=== PATIENT | female | born 1955 | race Caucasian/White ===

== ENCOUNTER 2018-08-22 16:31 | Emergency (ER) | payer SELFPAY ==
[~2018-08-22] VITALS: Ht 157.5 cm; Wt 60.0 kg
[~2018-08-22 16:31] MED LIST: LISI1TAB11 PO; SULF1TAB49 PO
--- NOTE | 2018-08-22 17:02 | NUR ---
pt amb with steady gait to restroom
[2018-08-22] MEDS ORDERED: normal saline 1000ML IV soln IVB ONE (17:15)
[2018-08-22] MEDS ORDERED: labetalol 20mg/4ml (5mg/ml) syringe IV ONE (17:15)
--- NOTE | 2018-08-22 17:19 | NUR ---
Pt to CT.
[2018-08-22 17:54] LABS: CLARITY,URINE CLEAR (Clear); COLOR,URINE STRAW (Yellow); GLUCOSE, URINE NEGATIVE (Neg); KETONES,URINE NEGATIVE (Neg); LEUKOCYTE ESTERASE ,URINE NEGATIVE (Neg); NITRITES, URINE NEGATIVE (Neg); OCCULT BLOOD,URINE NEGATIVE (Neg); PROTEIN,URINE NEGATIVE (Neg); UROBILINOGEN,URINE 0.2 E.U/dL (0.2-1.0)
[2018-08-22 17:55] LABS: UA COLLECTION TYPE CLN CATCH MIDSTREAM
[2018-08-22] MEDS ORDERED: morphine 4 MG/ML inj SYRINge IV ONE (18:00)
--- NOTE | 2018-08-22 18:43 | NUR ---
Patient requesting to go home as her blood pressure has come down and she is feeling better. She requests ibuprofen for her headache. Spoke to Dr. Cramer and she states the patient may leave, but would have to sign AMA as we need to ensure her cardiac enzymes are normal and her kidney function is acceptable. Order for ibuprofen obtained. Will speak with the patient about staying for lab results.
[2018-08-22] MEDS ORDERED: ibuprofen tablet 400 MG TABLET PO ONE (18:45)
[2018-08-22 19:10] LABS: ALANINE AMINOTRANSFERASE 30 U/L (12-78); ALBUMIN 3.7 G/DL (3.4-5.0); ALKALINE PHOSPHATASE 96 IU/L (46-116); ANION GAP 15 (8-16); ASPARTATE AMINO TRANSFERASE 22 U/L (10-37); BILIRUBIN,TOTAL 0.6 MG/DL (0.1-1.0); BLOOD UREA NITROGEN 7 MG/DL (7-18); BUN/CREATININE RATIO 9.9 (6.6-38.0); CALCIUM 8.6 MG/DL (8.5-10.1); CHLORIDE 102 MMOL/L (99-107); CREATININE 0.71 MG/DL (0.40-0.90); GLUCOSE 199 MG/DL (70-104); POTASSIUM 3.4 MMOL/L (3.5-5.1); SODIUM 139 MMOL/L (135-145); TOTAL CARBON DIOXIDE 22.4 MMOL/L (24-32); TOTAL PROTEIN 7.3 G/DL (6.4-8.2); eGFR 83 ML/MIN
--- NOTE | 2018-08-22 19:10 | NUR ---
Dr. Cramer notified of blood pressure 182/102. She states we will evaluate labs prior to further treatment.
[2018-08-22 19:13] LABS: TROPONIN I < 0.04 NG/ML (0.0-0.05)
[2018-08-22 19:16] VITALS: BP 182/102
[2018-08-22 19:23] LABS: BASOPHILS % (AUTO) 0.3 % (0-1); EOSINOPHILS % (AUTO) 0.5 % (0-6); HEMATOCRIT 54.5 % (35.0-45.0); LYMPHOCYTES # (AUTO) 1.3 X10'3 (1.1-4.8); LYMPHOCYTES % (AUTO) 16.2 % (21-51); MEAN CORPUSCULAR HEMOGLOBIN 33.2 PG (27.0-31.0); MEAN CORPUSCULAR HGB CONC 33.2 % (33.0-36.5); MEAN PLATELET VOLUME 11.6 FL (7.4-10.4); MONOCYTES # (AUTO) 0.4 X10'3 (0-0.9); MONOCYTES % (AUTO) 5.5 % (2-12); NEUTROPHILS # (AUTO) 6.4 X10'3 (1.8-7.7); NEUTROPHILS % (AUTO) 77.5 % (42-75); PLATELET COUNT 153 X10'3 (140-440); RED BLOOD COUNT 5.45 X10'6 (4.20-5.60); RED CELL DISTRIBUTION WIDTH 13.9 % (11.5-14.5); WHITE BLOOD COUNT 8.1 X10'3 (4.5-11.0)
[2018-08-22 19:29] LABS: HEMOGLOBIN 18.1 g/dl (12.0-16.0)
== END 2018-08-22 19:51 | disposition home or self-care (01) ==
LOC: ER 16:32
DX: I10 Essential (primary) hypertension (principal); R51 Headache; G89.29 Other chronic pain; Z90.49 Acquired absence of other specified parts of digestive tract; Z79.899 Other long term (current) drug therapy; Z88.0 Allergy status to penicillin
CPT/HCPCS: 36415; 70450; 71045; 80053; 81003; 82948; 84484; 85025; 93005; 96374; 99284; J2270; J7030; J3490

== ENCOUNTER 2018-09-06 18:53 | Emergency (ER) | payer SELFPAY ==
[~2018-09-06] VITALS: Ht 157.5 cm; Wt 61.8 kg
[2018-09-06 19:28] LABS: BASOPHILS % (AUTO) 0.1 % (0-1); EOSINOPHILS # (AUTO) 0.1 X10'3 (0-0.9); EOSINOPHILS % (AUTO) 1.5 % (0-6); HEMATOCRIT 54.2 % (35.0-45.0); LYMPHOCYTES # (AUTO) 1.6 X10'3 (1.1-4.8); MEAN CORPUSCULAR HEMOGLOBIN 33.4 PG (27.0-31.0); MEAN CORPUSCULAR HGB CONC 33.7 % (33.0-36.5); MEAN CORPUSCULAR VOLUME 99.2 FL (78-98); MEAN PLATELET VOLUME 10.5 FL (7.4-10.4); MONOCYTES # (AUTO) 0.4 X10'3 (0-0.9); MONOCYTES % (AUTO) 6.8 % (2-12); NEUTROPHILS # (AUTO) 3.6 X10'3 (1.8-7.7); NEUTROPHILS % (AUTO) 63.6 % (42-75); PLATELET COUNT 148 X10'3 (140-440); RED BLOOD COUNT 5.46 X10'6 (4.20-5.60); RED CELL DISTRIBUTION WIDTH 13.9 % (11.5-14.5); WHITE BLOOD COUNT 5.6 X10'3 (4.5-11.0)
[2018-09-06 19:36] LABS: HEMOGLOBIN 18.2 g/dl (12.0-16.0)
[2018-09-06 19:42] LABS: ALANINE AMINOTRANSFERASE 32 U/L (12-78); ALBUMIN 4.2 G/DL (3.4-5.0); ALBUMIN/GLOBULIN RATIO 1.1 (1.1-1.5); ALKALINE PHOSPHATASE 101 IU/L (46-116); ANION GAP 13 (8-16); ASPARTATE AMINO TRANSFERASE 19 U/L (10-37); BILIRUBIN,TOTAL 0.8 MG/DL (0.1-1.0); BLOOD UREA NITROGEN 10 MG/DL (7-18); BUN/CREATININE RATIO 13.2 (6.6-38.0); CALCIUM 9.3 MG/DL (8.5-10.1); CHLORIDE 100 MMOL/L (99-107); CREATININE 0.76 MG/DL (0.40-0.90); GLUCOSE 223 MG/DL (70-104); POTASSIUM 3.4 MMOL/L (3.5-5.1); SODIUM 139 MMOL/L (135-145); TOTAL CARBON DIOXIDE 25.7 MMOL/L (24-32); eGFR 77 ML/MIN
[2018-09-06 19:53] LABS: PARTIAL THROMBOPLASTIN TIME 28 SECONDS (22-32)
[2018-09-06] MEDS ORDERED: diphenhydrAMINE 50 mg/ml inj IV ONE (20:50)
[2018-09-06] MEDS ORDERED: proCHLORperazine 10 MG/2 ml inj IV ONE (20:50)
[2018-09-06] MEDS ORDERED: diphenhydrAMINE 50 mg/ml inj IM ONE (21:05)
[2018-09-06] MEDS ORDERED: proCHLORperazine 10 MG/2 ml inj IM ONE (21:05)
[2018-09-06 21:42] LABS: LARGE PLATELETS MODERATE; PLATELET ESTIMATE NORMAL
[2018-09-06] MEDS ORDERED: acetaminophen 325mg tablet PO ONE (21:50)
[2018-09-06] MEDS ORDERED: metoclopramide 10mg tablet PO ONE (21:50)
[2018-09-06 22:30] VITALS: BP 180/102
== END 2018-09-06 22:42 | disposition home or self-care (01) ==
LOC: ER 18:54
DX: I16.0 Hypertensive urgency (principal); G89.29 Other chronic pain; Z90.49 Acquired absence of other specified parts of digestive tract; Z88.0 Allergy status to penicillin; Z79.899 Other long term (current) drug therapy
CPT/HCPCS: 36415; 71045; 80053; 84484; 85025; 85610; 85730; 93005; 96372; 99284; J0780; J1200; J8597